=== PATIENT | female | born 1985 | race Caucasian/White ===

== ENCOUNTER 2016-10-30 16:23 | Emergency (ER) | payer MEDICAID ==
[~2016-10-30] VITALS: Ht 157.5 cm; Wt 68.3 kg
[2016-10-30] MEDS ORDERED: KETOROLAC 30 MG/1 ML IVPush ONE (17:00)
[2016-10-30] MEDS ORDERED: DIPHENHYDRAMINE 50 MG/ML, 1ML IVPush ONE (17:00)
[2016-10-30] MEDS ORDERED: METOCLOPRAMIDE 5 MG/ML, 2ML IVPush ONE (17:00)
[2016-10-30] MEDS ORDERED: SODIUM CHLORIDE 0.9% 1,000ML IVBOLUS ONE (17:00)
[2016-10-30] MEDS ORDERED: SUMATRIPTAN 6MG/0.5ML SQ ONE ×2 (17:00→18:14)
[2016-10-30] MEDS ORDERED: SODIUM CHLORIDE FLUSH 10ML SYR IVF ONE (17:00)
[2016-10-30] MEDS ORDERED: METOCLOPRAMIDE 5 MG/ML, 2ML ONE (18:13)
[2016-10-30] MEDS ORDERED: DIPHENHYDRAMINE 50 MG/ML, 1ML ONE (18:13)
[2016-10-30] MEDS ORDERED: KETOROLAC 30 MG/1 ML ONE (18:13)
[2016-10-30] MEDS ORDERED: DEXAMETHASONE 4 MG/ML, 5ML ONE (18:39)
[2016-10-30 18:50] VITALS: BP 112/79
[2016-10-30] MEDS ORDERED: MAGNESIUM SULFATE PMX 2GM/50ML 50 ML IV ONE (19:00)
[2016-10-30] MEDS ORDERED: DEXAMETHASONE 4 MG/ML, 1ML IVPush ONE (19:00)
== END 2016-10-30 19:15 | disposition home or self-care (01) ==
LOC: ED 18:33
DX: R51 Headache (principal); G89.29 Other chronic pain
CPT/HCPCS: 96361; 96374; 96375; 99285; J1200; J1885; J2765; J7030

== ENCOUNTER 2016-12-28 19:15 | Emergency (ER) | payer MEDICAID ==
[~2016-12-28] VITALS: Ht 157.5 cm; Wt 70.9 kg
[2016-12-28 20:11] LABS: BLOOD UREA NITROGEN 16 mg/dL (7-18)
[2016-12-28] MEDS ORDERED: OMNIPAQUE 350 MG/ML, 100ML BOTTLE ONE (20:18)
[2016-12-28 20:50] LABS: IS PT STATUS REG ER OR PRE ER? YES
[2016-12-28] MEDS ORDERED: morphine SULFATE 10 MG/ML, 1ML IVPush ONE (21:00)
[2016-12-28] MEDS ORDERED: KETOROLAC 30 MG/1 ML IVPush ONE (21:00)
[2016-12-28] MEDS ORDERED: ONDANSETRON 2MG/ML, 2ML ONE (21:11)
[2016-12-28] MEDS ORDERED: MORPHINE SULFATE 4 MG/ML, 1ML ONE (21:11)
[2016-12-28] MEDS ORDERED: KETOROLAC 30 MG/1 ML ONE (21:12)
[2016-12-28 21:30] VITALS: BP 110/86
== END 2016-12-28 21:50 | disposition home or self-care (01) ==
LOC: ED 20:32
DX: M94.0 Chondrocostal junction syndrome [Tietze] (principal); Z87.891 Personal history of nicotine dependence
CPT/HCPCS: 36415; 71275; 80048; 82040; 83880; 84484; 85025; 85379; 93005; 96374; 96375; 99285; J1885; J2270; Q9967

== ENCOUNTER 2017-01-02 14:25 | Emergency (ER) | payer MEDICAID ==
[~2017-01-02] VITALS: Ht 157.5 cm; Wt 68.9 kg
[2017-01-02] MEDS ORDERED: SODIUM CHLORIDE 0.9% 1,000ML IVBOLUS ONE (15:30)
[2017-01-02] MEDS ORDERED: SODIUM CHLORIDE FLUSH 10ML SYR IVF ONE (15:30)
[2017-01-02 15:54] LABS: BLOOD UREA NITROGEN 15 mg/dL (7-18)
[2017-01-02 15:59] LABS: IS PT STATUS REG ER OR PRE ER? YES
[2017-01-02] MEDS ORDERED: DIPHENHYDRAMINE 50 MG/ML, 1ML ONE (16:09)
[2017-01-02] MEDS ORDERED: METOCLOPRAMIDE 5 MG/ML, 2ML ONE (16:09)
[2017-01-02] MEDS ORDERED: METOCLOPRAMIDE 5 MG/ML, 2ML IVPush ONE (16:30)
[2017-01-02] MEDS ORDERED: DIPHENHYDRAMINE 50 MG/ML, 1ML IVPush ONE (16:30)
[2017-01-02 17:27] VITALS: BP 97/63
== END 2017-01-02 17:29 | disposition home or self-care (01) ==
LOC: ED 16:50
DX: G43.C0 Periodic headache syndromes in child or adult, not intractable (principal); R07.2 Precordial pain; J20.9 Acute bronchitis, unspecified; M94.0 Chondrocostal junction syndrome [Tietze]
CPT/HCPCS: 36415; 71010; 80048; 82040; 84484; 85025; 93005; 96361; 96374; 96375; 99285; J1200; J2765; J7030

== ENCOUNTER 2017-01-22 06:49 | Emergency (ER) | payer MEDICAID ==
[~2017-01-22] VITALS: Ht 157.5 cm; Wt 72.7 kg
[2017-01-22] MEDS ORDERED: MECLIZINE CHEWABLE 25 MG TAB ONE (07:50)
[2017-01-22] MEDS ORDERED: ONDANSETRON 2MG/ML, 2ML ONE (07:50)
[2017-01-22] MEDS ORDERED: SODIUM CHLORIDE FLUSH 10ML SYR IVF ONE (08:00)
[2017-01-22] MEDS ORDERED: ONDANSETRON 2MG/ML, 2ML IVPush ONE (08:00)
[2017-01-22] MEDS ORDERED: SODIUM CHLORIDE 0.9% 1,000ML IVBOLUS ONE (08:00)
[2017-01-22] MEDS ORDERED: MECLIZINE CHEWABLE 25 MG TAB PO ONE (08:00)
[2017-01-22 08:10] LABS: BLOOD UREA NITROGEN 24 mg/dL (7-18)
[2017-01-22 08:53] LABS: ANISOCYTOSIS 1+; GIANT PLATELETS 1+; LARGE PLATELETS 1+
[2017-01-22] MEDS ORDERED: HYDROcodone/APAP 5/325 TABLET ONE (09:00)
[2017-01-22] MEDS ORDERED: HYDROcodone/APAP 5/325 TABLET PO STA (09:25)
[2017-01-22] MEDS ORDERED: HYDROcodone/APAP 5/325 TABLET PO ONE (09:30)
[2017-01-22 09:31] LABS: PATH.CAST-FLAG NOT PRESENT; SPERM-FLAG NOT PRESENT; SRC-FLAG NOT PRESENT; XTAL-FLAG NOT PRESENT; YLC-FLAG NOT PRESENT
[2017-01-22 10:44] VITALS: BP 111/75
== END 2017-01-22 10:51 | disposition home or self-care (01) ==
LOC: ED 07:05
DX: N12 Tubulo-interstitial nephritis, not specified as acute or chronic (principal); S89.92XA Unspecified injury of left lower leg, initial encounter; W01.0XXA Fall on same level from slipping, tripping and stumbling without subsequent striking against object, initial encounter; Y93.89 Activity, other specified; Y92.89 Other specified places as the place of occurrence of the external cause; Y99.8 Other external cause status
CPT/HCPCS: 36415; 73564; 80048; 81001; 82040; 84703; 85025; 87086; 93005; 96361; 96374; 99285; J2405; J7030

== ENCOUNTER 2017-03-10 06:04 | Emergency (ER) | payer MEDICAID ==
[~2017-03-10] VITALS: Ht 157.5 cm; Wt 74.5 kg
[2017-03-10 07:52] VITALS: BP 109/76
== END 2017-03-10 08:29 | disposition home or self-care (01) ==
LOC: ED 08:28
DX: J20.8 Acute bronchitis due to other specified organisms (principal)
CPT/HCPCS: 71020; 93005; 99284

== ENCOUNTER 2017-03-24 06:36 | Emergency (ER) | payer MEDICAID ==
[~2017-03-24] VITALS: Ht 157.5 cm; Wt 76.8 kg
[2017-03-24 06:37] VITALS: BP 131/100
[2017-03-24] MEDS ORDERED: IBUPROFEN 200 MG TABLET ONE (07:24)
[2017-03-24] MEDS ORDERED: IBUPROFEN 200 MG TABLET PO ONE (07:30)
== END 2017-03-24 08:04 | disposition home or self-care (01) ==
LOC: ED 07:34
DX: S93.402A Sprain of unspecified ligament of left ankle, initial encounter (principal); S93.602A Unspecified sprain of left foot, initial encounter; X58.XXXA Exposure to other specified factors, initial encounter; Y93.89 Activity, other specified; Y92.89 Other specified places as the place of occurrence of the external cause; Y99.8 Other external cause status
CPT/HCPCS: 99284

== ENCOUNTER 2017-03-25 16:55 | Emergency (ER) | payer MEDICAID ==
[~2017-03-25] VITALS: Ht 165.1 cm; Wt 66.0 kg
[2017-03-25 16:58] VITALS: BP 115/83
[2017-03-25] MEDS ORDERED: KETOROLAC 30 MG/1 ML IM ONE (17:30)
[2017-03-25] MEDS ORDERED: HYDROcodone/APAP 5/325 TABLET PO ONE (17:30)
[2017-03-25] MEDS ORDERED: KETOROLAC 30 MG/1 ML ONE (17:33)
[2017-03-25] MEDS ORDERED: HYDROcodone/APAP 5/325 TABLET ONE (17:33)
== END 2017-03-25 18:22 | disposition home or self-care (01) ==
LOC: ED 18:10
DX: S93.492A Sprain of other ligament of left ankle, initial encounter (principal); X58.XXXA Exposure to other specified factors, initial encounter; Y93.89 Activity, other specified; Y99.8 Other external cause status; Y92.89 Other specified places as the place of occurrence of the external cause
CPT/HCPCS: 96372; 99283; J1885

== ENCOUNTER 2017-04-14 08:45 | Emergency (ER) | payer MEDICAID ==
[~2017-04-14] VITALS: Ht 157.5 cm; Wt 76.0 kg
[2017-04-14 10:38] LABS: BLOOD UREA NITROGEN 13 mg/dL (7-18)
[2017-04-14 10:55] LABS: HEMATOCRIT 35.3 % (34.6-47.8); HEMOGLOBIN 11.6 g/dL (11.7-16.4); WHITE BLOOD COUNT 3.9 x10^3/uL (3.4-10)
[2017-04-14] MEDS ORDERED: IBUPROFEN 200 MG TABLET ONE (11:18)
[2017-04-14] MEDS ORDERED: IBUPROFEN 200 MG TABLET PO ONE (12:00)
[2017-04-14 12:52] VITALS: BP 122/67
== END 2017-04-14 12:55 | disposition home or self-care (01) ==
LOC: ED 09:49
DX: E86.0 Dehydration (principal)
CPT/HCPCS: 36415; 80048; 81003; 82040; 84703; 85025; 93005; 99285

== ENCOUNTER 2018-05-23 06:02 | Emergency (ER) | payer MEDICAID, OTHER ==
[~2018-05-23] VITALS: Ht 157.5 cm; Wt 84.5 kg
[2018-05-23] MEDS ORDERED: MAALOX/HYOSCYAMINE/LIDOCAINE 45 ML BTL ONE (06:12)
[2018-05-23] MEDS ORDERED: MAALOX/HYOSCYAMINE/LIDOCAINE 45 ML BTL PO ONE (06:30)
[2018-05-23 07:12] LABS: ALANINE AMINOTRANSFERASE 34 U/L (12-78); ALBUMIN 3.6 g/dL (3.4-5.0); ANION GAP 4 mmol/L (5-15); CALCIUM 8.7 mg/dL (8.5-10.1); CHLORIDE 114 mmol/L (98-107); CREATININE 0.77 mg/dL (0.55-1.02)
[2018-05-23 07:15] LABS: ALKALINE PHOSPHATASE 75 U/L (45-117); BILIRUBIN,TOTAL 0.4 mg/dL (0.2-1.0); TOTAL PROTEIN 7.5 g/dL (6.4-8.2)
[2018-05-23 07:22] LABS: MEAN CORPUSCULAR HEMOGLOBIN 27.1 pg (27.0-34.8); MEAN CORPUSCULAR HGB CONC 32.2 g/dL (32.4-35.8); MEAN CORPUSCULAR VOLUME 84.1 fL (80-100); MEAN PLATELET VOLUME 12.3 fL (7.4-10.4); PLATELET COUNT 101 x10^3/uL (130-400); RED CELL DISTRIBUTION WIDTH 15.3 % (9.6-15.2)
[2018-05-23 07:24] LABS: BASOPHILS # (AUTO) 0.02 x10^3/uL (0-0.1); BASOPHILS % (AUTO) 0 % (0-1); EOSINOPHILS # (AUTO) 0.03 x10^3/uL (0-0.4); EOSINOPHILS % (AUTO) 1 % (1-7); LYMPHOCYTES # (AUTO) 1.15 x10^3/uL (1-3.4); LYMPHOCYTES % (AUTO) 21 % (22-44); MD SCAN; MONOCYTES # (AUTO) 0.62 x10^3/uL (0.2-0.8); MONOCYTES % (AUTO) 11 % (2-9); NEUTROPHILS # (AUTO) 3.74 x10^3/uL (1.8-6.8); NEUTROPHILS % (AUTO) 67 % (42-75)
[2018-05-23 08:14] LABS: CULTURE INDICATED? YES; HCG UR SG 1.021 (1.003-1.030); MICROSCOPIC INDICATED
[2018-05-23 08:15] VITALS: BP 112/75
== END 2018-05-23 08:56 | disposition home or self-care (01) ==
LOC: ED 07:27
DX: R10.13 Epigastric pain (principal)
CPT/HCPCS: 36415; 74022; 80053; 81001; 81025; 83690; 85025; 87086; 93005; 99284